=== PATIENT | female | born 1960 | race Two or more races ===

== ENCOUNTER 2019-08-24 19:51 | Inpatient (IN) | payer OTHER ==
[~2019-08-24] VITALS: Ht 172.7 cm; Wt 151.3 kg
[2019-08-24] MEDS ORDERED: DILTIAZEM HCL 25 MG/5 ML VIAL IV ONE ×2 (20:30→21:45)
[2019-08-24] MEDS ORDERED: DILTIAZEM HCL 60 MG TAB PO ONE (20:30)
[2019-08-24 22:29] LABS: Basophils # (auto) 0.1 uL; Basophils % (auto) 0.6 % (0.0-2.0); Eosinophils # (auto) 0 uL; Eosinophils % (auto) 0.2 % (0.0-7.0); Hematocrit 36.6 % (36.0-46.0); Hemoglobin 12.2 g/dL (12.2-16.2); Lymphocytes % (auto) 8.7 % (10.0-50.0); Mean Corpuscular Hemoglobin 30.3 pg (28.0-32.0); Mean Corpuscular Hgb Conc. 33.3 g/dL (32.0-36.0); Mean Corpuscular Volume 91.2 fL (80.0-100.0); Monocytes # (auto) 0.7 uL; Neutrophils # (auto) 9.6 uL; Neutrophils % (auto) 84.5 % (37.0-80.0); Platelet Count (auto) 236 10^3/uL (140-450); Red Blood Cells 4.01 10^6/uL (4.0-5.20); Red Cell Distribution Width 15.7 % (11.8-14.3); White Blood Cell 11.4 10^3/uL (4.4-10.8)
[2019-08-24 22:42] LABS: INR 1.03 (0.9-1.15); Partial Thromboplastin Time 27.3 sec (23.64-32.05)
[2019-08-24 23:10] LABS: Alanine Aminotransferase 21 U/L (13-56); Albumin 3.4 g/dL (3.4-5.0); Anion Gap 15 (5-15); Aspartate Aminotransferase 70 U/L (15-37); BUN/Creatinine Ratio 11.7; Blood Alcohol < 3.0 mg/dL (0-5); Blood Urea Nitrogen 53 mg/dL (7-18); Calcium 8.2 mg/dL (8.5-10.1); Carbon Dioxide 30 mmol/L (21-32); Chloride 86 mmol/L (98-107); GFR African American 13 mL/min; GFR Non-African American 11 mL/min; Glucose 275 mg/dL (74-106); Potassium 3.8 mmol/L (3.5-5.1); Sodium 131 mmol/L (136-145)
[2019-08-24 23:13] LABS: Alkaline Phosphatase 114 U/L (45-117); Bilirubin, Total 0.8 mg/dL (0.2-1.0); Total Protein 7.5 g/dL (6.4-8.2)
[2019-08-24] MEDS ORDERED: ACETAMINOPHEN 325 MG TAB PO ONE (23:30)
[2019-08-24] MEDS ORDERED: SODIUM CHLORIDE 0.9% 1,000 ML IV ONE (23:30)
[2019-08-24] MEDS ORDERED: METOPROLOL TARTRATE 1MG/1ML-5ML VIAL IV SCH (23:45)
[2019-08-25] VITALS (7 sets, daily range): BP systolic 98–112; BP diastolic 47–70
[2019-08-25 00:52] LABS: Urine Bacteria MANY /hpf (None Seen); Urine Blood TRACE /uL (Negative); Urine Hyaline Cast MOD /lpf (0 - 2); Urine Mucus FEW (None Seen); Urine Specific Gravity 1.016 (1.001-1.035); Urine WBC 304 /hpf (0 - 5)
[2019-08-25 00:59] LABS: Barbiturate Scree,Urine NEGATIVE (NEGATIVE); Benzodiazephine Screen, Urine NEGATIVE (NEGATIVE); Cannabinoid Screen, Urine NEGATIVE (NEGATIVE)
[2019-08-25 01:07] LABS: Alcohol, Urine < 3.0 mg/dL (0-5); Amphetamine Screen, Urine NEGATIVE (NEGATIVE); Cocaine Screen, Urine NEGATIVE (NEGATIVE); Opiate Scree,Urine POSITIVE (NEGATIVE); Phencyclidine Screen, Urine NEGATIVE (NEGATIVE)
[2019-08-25] MEDS ORDERED: cefTRIAXone 1GM/50ML D5W 50 ML IV ONE (01:45)
[2019-08-25] MEDS ORDERED: TEMAZEPAM 15 MG CAP PO PRN (03:15)
[2019-08-25] MEDS ORDERED: LORazepam 0.5 MG TAB PO PRN (03:15)
[2019-08-25] MEDS ORDERED: ALBUTEROL SULF 2.5 MG/0.5ML(0.5%) NEB SOLN NEB PRN (03:15)
[2019-08-25] MEDS ORDERED: DOCUSATE SOD 100 MG CAP PO PRN (03:15)
[2019-08-25] MEDS ORDERED: IPRATROPIUM BROM 0.5 MG/2.5ML INH SOL NEB PRN (03:15)
[2019-08-25] MEDS ORDERED: HYDROcodone-ACET 5/325MG TAB PO PRN (03:15)
[2019-08-25] MEDS ORDERED: ACETAMINOPHEN 500 MG TAB PO PRN (03:15)
[2019-08-25] MEDS ORDERED: ONDANSETRON HCL 4 MG/2 ML VIAL IV PRN (03:15)
[2019-08-25] MEDS ORDERED: HEPARIN SODIUM (PORCINE) 5000 UNITS/ML 1ML VIAL IV ONE ×3 (03:30→14:45)
[2019-08-25] MEDS ORDERED: DEXTROSE (50%) 50ML SYRG IV PRN (04:00)
[2019-08-25 04:36] LABS: Basophils # (auto) 0 uL; Basophils % (auto) 0.5 % (0.0-2.0); Eosinophils # (auto) 0.1 uL; Eosinophils % (auto) 0.6 % (0.0-7.0); Hematocrit 33.3 % (36.0-46.0); Hemoglobin 10.8 g/dL (12.2-16.2); Lymphocytes # (auto) 0.8 uL; Lymphocytes % (auto) 8.6 % (10.0-50.0); Mean Corpuscular Hgb Conc. 32.5 g/dL (32.0-36.0); Mean Corpuscular Volume 92.2 fL (80.0-100.0); Monocytes # (auto) 0.5 uL; Monocytes % (auto) 5.6 % (0.0-12.0); Neutrophils # (auto) 7.7 uL; Neutrophils % (auto) 84.7 % (37.0-80.0); Platelet Count (auto) 214 10^3/uL (140-450); Red Blood Cells 3.61 10^6/uL (4.0-5.20); Red Cell Distribution Width 15.7 % (11.8-14.3); White Blood Cell 9.1 10^3/uL (4.4-10.8)
--- NOTE | 2019-08-25 04:41 | NUR ---
Telemetry admit from ER ANA BUCK admitted to Telemetry unit after SBAR received. Patient oriented to Katja moya RN, unit, room, bed, and unit policies regarding patient care and visiting hours. Patient now on continuous telemetry monitoring, tele box # 4 and telemetry reading on arrival to unit is a fib 95. Patient placed on bedside oxygen 3L, weighed by bedscale and encouraged to call if they need something. All questions and concerns addressed, patient verbalized understanding. Note: daughter at bedside at this time
[2019-08-25 04:43] LABS: INR 1.03 (0.9-1.15); Partial Thromboplastin Time 27.4 sec (23.64-32.05)
[2019-08-25 05:15] LABS: BUN/Creatinine Ratio 12.2; Calcium 7.9 mg/dL (8.5-10.1); Potassium 3.4 mmol/L (3.5-5.1)
--- NOTE | 2019-08-25 05:15 | NUR ---
called and talked to hospitalist, juve. she told me to go ahead with the bolus of heparin and the heparin drip.
--- NOTE | 2019-08-25 05:24 | NUR ---
wound pictures taken.
--- NOTE | 2019-08-25 05:50 | NUR ---
pt blood sugar was 446 and 421. gave 10 units insulin and talked to hospitalist. new orders for accu q6 moderate scale.
[2019-08-25] MEDS: GABAPENTIN 300 MG CAP PO SCH ×3 (05:53→21:38)
[2019-08-25] MEDS: PANTOPRAZOLE 40 MG TAB PO SCH (05:53)
[2019-08-25] MEDS ORDERED: ACCU-CHEK COMFORT CURVE STRIP VI SCH (06:00)
[2019-08-25] MEDS ORDERED: InsuLIN REG 1unit/0.01ml Soln (100units/ml) SC SCH (06:00)
[2019-08-25] MEDS: ALBUTEROL SULF 2.5 MG/0.5ML(0.5%) NEB SOLN NEB SCH ×3 (06:09→18:13)
[2019-08-25] MEDS: IPRATROPIUM BROM 0.5 MG/2.5ML INH SOL NEB SCH ×3 (06:09→18:13)
[2019-08-25] MEDS ORDERED: BUSP5TAB51 PO (06:27)
[2019-08-25] MEDS ORDERED: PERCOT PO (06:27)
[2019-08-25] MEDS ORDERED: ATOR40TA52 PO (06:27)
[2019-08-25] MEDS ORDERED: APIX5TAB PO (06:27)
[2019-08-25] MEDS ORDERED: CLOP75TA41 PO (06:27)
[2019-08-25] MEDS ORDERED: LORA-655 PO (06:27)
[2019-08-25] MEDS ORDERED: GABA300C10 PO (06:27)
[2019-08-25] MEDS ORDERED: MECL-87 PO (06:27)
[2019-08-25] MEDS ORDERED: RANO500T2 PO (06:27)
[2019-08-25] MEDS ORDERED: METO-169 PO (06:27)
[2019-08-25] MEDS ORDERED: BECL40AE11 IN (06:27)
[2019-08-25] MEDS ORDERED: PRIM50TA5 PO (06:27)
[2019-08-25] MEDS ORDERED: METO2.5T11 PO (06:27)
[2019-08-25] MEDS ORDERED: PANT40TA2 PO (06:27)
[2019-08-25] MEDS ORDERED: BUME2TAB5 PO (06:27)
[2019-08-25] MEDS ORDERED: ONDA-155 PO (06:27)
[2019-08-25] MEDS ORDERED: AMIO200T33 PO (06:27)
[2019-08-25] MEDS ORDERED: ALBUAER3 IN (06:27)
[2019-08-25] MEDS ORDERED: SERT-274 PO (06:27)
[2019-08-25] MEDS ORDERED: NITR0.4S29 SL (06:27)
[2019-08-25] MEDS ORDERED: NORT25CA PO (06:27)
--- NOTE | 2019-08-25 06:50 | NUR ---
IV insertion IV access obtained, via clean sterile technique by inserting 22 gauge catheter at right wrist after 1 attempt(s). IV secured properly. No trauma to site. Patient tolerated well. NOTE: old iv not patent IV removal IV DC'd with clean sterile technique, catheter fully intact. Pressure dressing applied to site. Patient tolerated well. NOTE: OLD IV NOT PATENT
[2019-08-25] MEDS: HEPARIN DRIP/D5W 100UNITS/ML 250 ML IV SCH (06:56)
[2019-08-25 07:47] LABS: Basophils # (auto) 0 uL; Basophils % (auto) 0.3 % (0.0-2.0); Eosinophils # (auto) 0.1 uL; Eosinophils % (auto) 0.6 % (0.0-7.0); Hematocrit 31.9 % (36.0-46.0); Hemoglobin 10.5 g/dL (12.2-16.2); Lymphocytes # (auto) 0.7 uL; Lymphocytes % (auto) 7.8 % (10.0-50.0); Mean Corpuscular Hemoglobin 29.9 pg (28.0-32.0); Mean Corpuscular Hgb Conc. 32.9 g/dL (32.0-36.0); Monocytes # (auto) 0.7 uL; Monocytes % (auto) 7.4 % (0.0-12.0); Neutrophils # (auto) 7.8 uL; Neutrophils % (auto) 83.9 % (37.0-80.0); Nucleated Red Blood Cells % 0.1 %; Platelet Count (auto) 212 10^3/uL (140-450); Red Cell Distribution Width 15.5 % (11.8-14.3); White Blood Cell 9.3 10^3/uL (4.4-10.8)
--- NOTE | 2019-08-25 08:20 | NUR ---
OPENING SHIFT NOTE ASSUMED CARE OF PATIENT. PATIENT IS AWAKE AND ALERT. NO SOB OR SIGNS OF DISTRESS NOTED. INSTRUCTED ON POC AND TO CALL FOR ASSISTANCE PRN. BED IN LOWEST POSITION WITH SIDE RAILS UP X2. WILL CONTINUE TO MONITOR.
--- NOTE | 2019-08-25 09:50 | NUR ---
Complaint Received a complain from pt's daughter stating that the pt was shaking and with out oxygen on, spoke to the ALODIZE MACHINE HELPER and informed me that pt needed to go to the [facility] and the O2 tubing was not long enough, pt informed ALODIZE MACHINE HELPER that she will be ok with out oxygen for a little bit for the ALODIZE MACHINE HELPER to go an get the long O2 tubing, and that pt has been shaking since before, pt's family informed of the situation, pt's daughter requesting for a transfer to [facility], Dr. Rogers informed that the pt's daughter wants to talk to him regarding the transfer, house worker informed that pt's daughter wants to talk to house worker, bed side nurse informed.
[2019-08-25] MEDS ORDERED: POTASSIUM CHL 10 Meq TABLET PO ONE (10:00)
[2019-08-25] MEDS: ACCU-CHEK COMFORT CURVE STRIP VI SCH ×3 (12:00→23:47)
[2019-08-25] MEDS: InsuLIN REG 1unit/0.01ml Soln (100units/ml) SC SCH ×3 (12:00→23:44)
[2019-08-25] MEDS: AMIODARONE HCL 200 MG TAB PO SCH ×2 (12:03→21:38)
[2019-08-25] MEDS: SERTRALINE HCL 50 MG TAB PO SCH (12:04)
[2019-08-25] MEDS: CLOPIDOGREL BISULFATE 75 MG TAB PO SCH (12:04)
--- NOTE | 2019-08-25 12:30 | NUR ---
PATIENT REFUSED REGULAR INSULIN. HAS HOME INSULIN AND REFUSED TO SURRENDER IT AT THIS TIME. CHARGE NURSE IS AWARE.
[2019-08-25 13:51] LABS: INR 1.03 (0.9-1.15); Partial Thromboplastin Time 35.3 sec (23.64-32.05)
[2019-08-25] MEDS ORDERED: DIPHENOXYLATE W/ATROPINE 2.5 MG TAB PO PRN (17:15)
--- NOTE | 2019-08-25 20:00 | NUR ---
PATIENT HAS INSULIN HUMULIN R U-500 AT BEDSIDE WITH HER OWN SLIDING SCALE. PER RECEIVED REPORT MD IS AWARE THAT PATIENT HAS BEEN INJECTING HER OWN INSULIN AND REFUSES THE HOSPITAL INSULIN BECAUSE IT DOES NOT WORK FOR HER. WILL CONTINUE TO MONITOR
--- NOTE | 2019-08-25 21:05 | NUR ---
HEPARIN DRIP STILL AT 13 ML/HR. WAITING FOR PT/PTT RESULT
[2019-08-25] MEDS: ATORVASTATIN 20 MG TAB PO SCH (21:38)
--- NOTE | 2019-08-25 21:50 | NUR ---
CALLED LAB TO FOLLOW UP PT/PTT RESULT; STAFF SAID IT'S STILL BEING PROCESSED, INSTRUCTED TO TIME NEXT PT/PTT AT 3:15 AM
[2019-08-25 22:35] LABS: INR 0.99 (0.9-1.15); Partial Thromboplastin Time 46.5 sec (23.64-32.05)
--- NOTE | 2019-08-25 22:38 | NUR ---
HEPARIN DRIP LATEST APTT RESULT 46.5, PER HEPARIN DRIP PROTOCOL; NO BOLUS, INCREASE RATE BY 200 UNITS/HR=2ML/HR
--- NOTE | 2019-08-25 23:48 | NUR ---
HYPOGLYCEMIA PATIENT'S BLOOD SUGAR DROPPED TO 37 MG/DL, REPEATED 34 MG/DL. PATIENT IS AWAKE, ALERT, ORIENTED X4, ABLE TO SWALLOW AND DENIES ANY SYMPTOMS OF HYPOGLYCEMIA. 8 OZ OF ORANGE JUICE GIVEN. WILL CONTINUE TO MONITOR
--- NOTE | 2019-08-25 23:50 | NUR ---
PATIENT STILL REFUSES TO SURRENDER HER OWN INSULIN BUT AGREED BRING IT HOME AND NOT TO INJECT ANOTHER DOSE AND LET THE NURSES GIVE HOSPITAL INSULIN.
[2019-08-26] MEDS: IPRATROPIUM BROM 0.5 MG/2.5ML INH SOL NEB SCH ×4 (00:28→19:40)
[2019-08-26] MEDS: ALBUTEROL SULF 2.5 MG/0.5ML(0.5%) NEB SOLN NEB SCH ×4 (00:28→19:40)
[2019-08-26] MEDS: cefTRIAXone 1GM/50ML D5W 50 ML IV SCH (01:58)
[2019-08-26] MEDS: HEPARIN DRIP/D5W 100UNITS/ML 250 ML IV SCH ×2 (02:17→19:20)
[2019-08-26] MEDS: DEXTROSE (50%) 50ML SYRG IV PRN ×2 (02:24→04:38)
[2019-08-26 03:00] LABS: Basophils # (auto) 0.1 uL; Basophils % (auto) 0.8 % (0.0-2.0); Eosinophils # (auto) 0.1 uL; Eosinophils % (auto) 1.6 % (0.0-7.0); Hemoglobin 10.8 g/dL (12.2-16.2); Lymphocytes # (auto) 1.2 uL; Lymphocytes % (auto) 12.7 % (10.0-50.0); Mean Corpuscular Hemoglobin 30.3 pg (28.0-32.0); Mean Corpuscular Hgb Conc. 33.7 g/dL (32.0-36.0); Mean Corpuscular Volume 90.1 fL (80.0-100.0); Monocytes # (auto) 0.8 uL; Neutrophils % (auto) 75.9 % (37.0-80.0); Platelet Count (auto) 223 10^3/uL (140-450); Red Blood Cells 3.55 10^6/uL (4.0-5.20); Red Cell Distribution Width 15.4 % (11.8-14.3); White Blood Cell 9.2 10^3/uL (4.4-10.8)
--- NOTE | 2019-08-26 03:02 | NUR ---
PAGED HOSPITALIST FOR EPISODES OF HYPOGLYCEMIA, WAITING FOR CALL BACK
[2019-08-26 03:15] LABS: INR 0.99 (0.9-1.15); Partial Thromboplastin Time 51.5 sec (23.64-32.05)
[2019-08-26 03:16] LABS: Albumin 3.2 g/dL (3.4-5.0); Calcium 8.4 mg/dL (8.5-10.1)
[2019-08-26 03:19] LABS: BUN/Creatinine Ratio 16.8
[2019-08-26] MEDS ORDERED: INSU1INJ15 SC (03:19)
[2019-08-26 03:23] LABS: Bilirubin, Total 0.5 mg/dL (0.2-1.0); Total Protein 7.7 g/dL (6.4-8.2)
[2019-08-26 03:24] LABS: Potassium 2.8 mmol/L (3.5-5.1)
--- NOTE | 2019-08-26 03:25 | NUR ---
HEPARIN DRIP LATEST APTT RESULT 51.5, PER HEPARIN DRIP PROTOCOL; NO BOLUS, NO CHANGE IN RATE
--- NOTE | 2019-08-26 03:30 | NUR ---
PAGED HOSPITALIST FOR CRITICAL RESULT; POTASSIUM 2.8. WAITING FOR CALL BACK
--- NOTE | 2019-08-26 04:09 | NUR ---
PAGED HOSPITALIST FOR CRITICAL RESULT POTASSIUM 2.8 AND EPISODES OF HYPOGLYCEMIA. WAITING FOR CALL BACK
[2019-08-26] MEDS ORDERED: POTASSIUM CHL 20MEQ/100ML 100 ML IV STA (04:22)
[2019-08-26] MEDS ORDERED: POTASSIUM CHL 20 Meq TABLET PO ONE (04:30)
--- NOTE | 2019-08-26 04:30 | NUR ---
RECEIVED ORDER FROM ARTIS BLACKMON; POTASSIUM CHLORIDE 40 MEQ TAB ONCE, POTASSIUM CHLORIDE IV 40 MEQ ONCE, GIVE ANOTHER DOSE OF D50% IN 50 ML MADE AWARE PATIENT INJECTING HER OWN INSULIN
[2019-08-26] MEDS ORDERED: POTASSIUM CHL 20MEQ/100ML 100 ML IV ONE (04:45)
[2019-08-26 05:00] VITALS: BP 146/87
[2019-08-26] MEDS: ACCU-CHEK COMFORT CURVE STRIP VI SCH ×4 (06:00→23:52)
[2019-08-26] MEDS: InsuLIN REG 1unit/0.01ml Soln (100units/ml) SC SCH ×4 (06:00→23:52)
--- NOTE | 2019-08-26 06:40 | NUR ---
[facility] HOSPITALIST; PATIENT'S LATEST BLOOD SUGAR IS 53 MG/DL. PATIENT DENIES S/S OF HYPOGLYCEMIA RECEIVED ORDER FROM ARTIS BLACKMON TO START D10% AT 30 ML/HR AND STOP ONCE BLOOD SUGAR IS NORMAL
[2019-08-26] MEDS ORDERED: DEXTROSE 10% 1,000 ML IV ONE (06:45)
[2019-08-26] MEDS ORDERED: POTASSIUM CHL 20MEQ/100ML 100 ML IV SCH (06:50)
[2019-08-26] MEDS: PANTOPRAZOLE 40 MG TAB PO SCH (06:53)
[2019-08-26] MEDS: GABAPENTIN 300 MG CAP PO SCH ×3 (06:53→21:29)
--- NOTE | 2019-08-26 07:30 | NUR ---
Opening Shift Note RECEIVED REPORT FROM NOC RN. Assumed care of patient, awake and alert. PATIENT ON OXYGEN AT 4 LPM VIA NASAL CANNULA WITH no S/S of distress/SOB or pain. BED IN LOWEST, LOCKED POSITION WITH SIDERAILS UP x2 AND CALL LIGHT WITHIN REACH AND DAUGHTER AT BEDSIDE. Instructed on POC and to call for assist PRN, will continue to monitor for changes Q1hr and PRN.
--- NOTE | 2019-08-26 07:38 | NUR ---
CARE ENDORSED TO AM SHIFT RN
--- NOTE | 2019-08-26 08:00 | NUR ---
RYAN FROM LAB CALLED A CRITICAL TROPONIN VALUE 0.501 FROM MONDAY AT 0030 HOURS.
[2019-08-26 09:00] VITALS: BP 117/79
--- NOTE | 2019-08-26 09:38 | NUR ---
DR. ALEX AT BEDSIDE.
[2019-08-26 09:42] LABS: Partial Thromboplastin Time 55.4 sec (23.64-32.05)
[2019-08-26] MEDS: AMIODARONE HCL 200 MG TAB PO SCH ×2 (10:20→21:29)
[2019-08-26] MEDS: SERTRALINE HCL 50 MG TAB PO SCH (10:20)
[2019-08-26] MEDS: CLOPIDOGREL BISULFATE 75 MG TAB PO SCH (10:20)
--- NOTE | 2019-08-26 10:22 | NUR ---
Transfer: faxed transfer packet to [facility]
--- NOTE | 2019-08-26 11:04 | NUR ---
[facility] denied transfer.
--- NOTE | 2019-08-26 11:31 | NUR ---
DR. YAN AT BEDSIDE.
[2019-08-26 11:37] LABS: Phosphorus 2.6 mg/dL (2.5-4.90); Uric Acid 13.8 mg/dL (2.6-6.0)
[2019-08-26 13:00] VITALS: BP 108/57
[2019-08-26 14:30] LABS: Calcium 8.8 mg/dL (8.5-10.1); Potassium 3.8 mmol/L (3.5-5.1)
[2019-08-26 14:34] LABS: BUN/Creatinine Ratio 19.4
[2019-08-26 15:37] LABS: INR 0.98 (0.9-1.15); Partial Thromboplastin Time 48.9 sec (23.64-32.05)
[2019-08-26 16:35] VITALS: BP 116/83
[2019-08-26 18:34] LABS: Protein, Urine 35.7 mg/dL (0.0-11.9)
[2019-08-26] MEDS: ATORVASTATIN 20 MG TAB PO SCH (21:29)
[2019-08-26 22:00] VITALS: BP 136/63
--- NOTE | 2019-08-26 23:00 | NUR ---
PATIENT REFUSED TO BE NPO AFTER MIDNIGHT, SHE DOES NOT WANT TO DO THE CARDIOLITE STRESS TEST SCHEDULED IN AM SHE SAID SHE WILL WAIT FOR THE ADVICE FROM HER OFFICE SUPPORT CLERK IN [place]
[2019-08-26 23:40] LABS: Partial Thromboplastin Time 57.9 sec (23.64-32.05)
--- NOTE | 2019-08-26 23:42 | NUR ---
HEPARIN DRIP LATEST APTT RESULT 57.9, PER HEPARIN DRIP PROTOCOL; NO BOLUS, NO CHANGE IN RATE CURRENT RATE 1700 UNITS/HR=17 ML/HR
[2019-08-27] VITALS (7 sets, daily range): BP systolic 113–132; BP diastolic 54–98
[2019-08-27] MEDS: ALBUTEROL SULF 2.5 MG/0.5ML(0.5%) NEB SOLN NEB SCH ×4 (00:59→19:02)
[2019-08-27] MEDS: IPRATROPIUM BROM 0.5 MG/2.5ML INH SOL NEB SCH ×4 (00:59→19:02)
[2019-08-27] MEDS: cefTRIAXone 1GM/50ML D5W 50 ML IV SCH (02:04)
[2019-08-27] MEDS: InsuLIN REG 1unit/0.01ml Soln (100units/ml) SC SCH ×3 (06:07→17:41)
[2019-08-27] MEDS: ACCU-CHEK COMFORT CURVE STRIP VI SCH ×3 (06:07→17:41)
[2019-08-27] MEDS: GABAPENTIN 300 MG CAP PO SCH ×3 (06:07→22:14)
[2019-08-27] MEDS: PANTOPRAZOLE 40 MG TAB PO SCH (06:12)
[2019-08-27 07:03] LABS: Chloride 95 mmol/L (98-107); Potassium 4.2 mmol/L (3.5-5.1); Sodium 133 mmol/L (136-145)
[2019-08-27 07:05] LABS: % Iron Saturation 23.6 % (15-50)
[2019-08-27 07:12] LABS: Alanine Aminotransferase 21 U/L (13-56); Albumin 2.9 g/dL (3.4-5.0); Anion Gap 9 (5-15); Aspartate Aminotransferase 65 U/L (15-37); BUN/Creatinine Ratio 19.7; Blood Urea Nitrogen 43 mg/dL (7-18); Calcium 8.9 mg/dL (8.5-10.1); Carbon Dioxide 29 mmol/L (21-32); GFR African American 30 mL/min; GFR Non-African American 25 mL/min; Glucose 325 mg/dL (74-106)
[2019-08-27 07:13] LABS: Hematocrit 34.1 % (36.0-46.0); Hemoglobin 11.1 g/dL (12.2-16.2); Mean Corpuscular Hemoglobin 30.4 pg (28.0-32.0); Mean Corpuscular Hgb Conc. 32.5 g/dL (32.0-36.0); Mean Corpuscular Volume 93.3 fL (80.0-100.0); Platelet Count (auto) 197 10^3/uL (140-450); Red Blood Cells 3.65 10^6/uL (4.0-5.20); Red Cell Distribution Width 15.6 % (11.8-14.3); White Blood Cell 7.5 10^3/uL (4.4-10.8)
[2019-08-27 07:15] LABS: Alkaline Phosphatase 109 U/L (45-117); Band Neutrophils % (manual) 0; Basophils % (manual) 0 (0.0-2.0); Bilirubin, Total 0.4 mg/dL (0.2-1.0); Blast Cells 0; Eosinophils % (manual) 0 (0-7); Metamyelocytes % 0; Myelocytes % 0; Promyelocytes % 0; Reactive Lymphocytes 0; Total Protein 7.7 g/dL (6.4-8.2)
[2019-08-27 07:18] LABS: Ferritin 269.4 ng/mL (10-322); Folate (Folic Acid) 21.33 ng/mL (5.38-24)
--- NOTE | 2019-08-27 07:33 | NUR ---
STILL WAITING FOR LATEST PT/PTT RESULTS ENDORSED TO AM SHIFT RN
[2019-08-27 07:38] LABS: INR 1.03 (0.9-1.15); Partial Thromboplastin Time 50.9 sec (23.64-32.05)
[2019-08-27 07:47] LABS: Lymphocytes % (manual) 19 (10.0-50.0); Monocytes % (manual) 6 (0-12)
--- NOTE | 2019-08-27 08:15 | NUR ---
Opening Shift Note Assumed care of patient, awake and alert. No S/S of distress/SOB or pain. Bed is in lowest position with 2x side rails up for safety. Call light is within reach. Instructed on POC and to call for assist PRN, will continue to monitor for changes Q1hr and PRN.
--- NOTE | 2019-08-27 09:32 | NUR ---
Transfer: Spoke to Gino at [facility] and they have a 2 page lists of pt being transferred into [facility]. Family request is low priority to transfer especially since it is not for HLOC. Gino stated once echo and stress test completed on this pt and if pt has heart cath, then they will evaluate accepting of this pt. I did get a call from pbx to state daughter of pt was in lobby and wanted to speak to me, I went down to lobby and no one was in lobby.
[2019-08-27] MEDS: CLOPIDOGREL BISULFATE 75 MG TAB PO SCH (10:17)
[2019-08-27] MEDS: AMIODARONE HCL 200 MG TAB PO SCH ×2 (10:17→22:16)
[2019-08-27] MEDS: SERTRALINE HCL 50 MG TAB PO SCH (10:18)
--- NOTE | 2019-08-27 10:20 | NUR ---
DR. ISAI ALEX AT BEDSIDE WITH PATIENT AND FAMILY.
[2019-08-27] MEDS: HEPARIN DRIP/D5W 100UNITS/ML 250 ML IV SCH (10:23)
[2019-08-27] MEDS ORDERED: ERGOCALCIFEROL 50,000 UNIT(1.25MG) CAP PO SCH (10:30)
[2019-08-27] MEDS: ALLOPURINOL 300 MG TAB PO SCH (11:16)
--- NOTE | 2019-08-27 11:30 | NUR ---
Hua catheter dc'd Order to discontinue hua catheter. Hua dc'd with clean technique following deflation of balloon. Patient tolerated well with no complaints of pain. Will continue care.
[2019-08-27] MEDS ORDERED: DEXTROSE (50%) 50ML SYRG IV PRN (12:00)
[2019-08-27] MEDS ORDERED: HEPARIN DRIP/D5W 100UNITS/ML 250 ML IV SCH (12:00)
[2019-08-27] MEDS ORDERED: METOPROLOL TARTRATE 50 MG TAB PO ONE (12:00)
[2019-08-27] MEDS ORDERED: LORazepam 0.5 MG TAB PO PRN (12:00)
--- NOTE | 2019-08-27 12:45 | NUR ---
IV removal IV DC'd to left wrist, per patient request, with clean technique, catheter fully intact. Pressure dressing applied to site. Patient tolerated procedure well.
[2019-08-27 13:06] LABS: INR 1.01 (0.9-1.15); Partial Thromboplastin Time 54.5 sec (23.64-32.05)
--- NOTE | 2019-08-27 13:08 | NUR ---
Transfer: spoke to pt and pt's daughter at bedside. Informed them on how transfer process works. Dr Barksdale was also in before me and spoke to pt and pt's family and they seem content now. I asked if pt or daughter had any more questions for me and the stated no
[2019-08-27] MEDS ORDERED: HUMULIN R U-500 SC SCH (14:00)
--- NOTE | 2019-08-27 14:48 | NUR ---
IV removal IV DC'd to right wrist due to patient accidently pulling it partially out, with clean clean technique, catheter fully intact. Pressure dressing applied to site. Patient tolerated well.
--- NOTE | 2019-08-27 16:21 | NUR ---
assessment Patient is a 59 year old female who is alert and oriented. Patients cognitive abilities are intact. Prior to admission patient lived home with family and functioned with assistance. Per patient she will return home to her prior living arrangements post discharge and family will transport her home. Patient informed me she has 02, fww, and a wheelchair for home use. Patient informed me her PCP is Dr Jansen at [place]. Patient informed me her daughter Sofia is her [facility] caregiver. Patient informed me she feels safe returning home on discharge and she does not need anything. I informed patient she has a right to speak to a social media marketing analyst regarding all care. I informed patient she has a right to participate in any and all discharge planning. Patient has a POA and advanced directive. Patient verbalized understanding and agreed to discharge plan. Addendum: 08/28/19 at 1625 by Lore BRADSHAW Amended: Links added.
--- NOTE | 2019-08-27 17:42 | NUR ---
POC 468, patient to administer home Humulin R Kwikpin at bedside. Humulin sliding scale held due to too much insulin and possibly causing hypoglycemia.
[2019-08-27 18:40] LABS: INR 0.99 (0.9-1.15); Partial Thromboplastin Time 50.5 sec (23.64-32.05)
--- NOTE | 2019-08-27 19:09 | NUR ---
Care endorsed to ANTONY Vidal, night nurse.
--- NOTE | 2019-08-27 20:00 | NUR ---
DAUGHTER AT BEDSIDE;PT CALM;DENIES PAIN.
[2019-08-27] MEDS: HUMULIN R U-500 SC SCH (22:00)
[2019-08-27] MEDS: APIXABAN 2.5 MG TAB PO SCH (22:12)
[2019-08-27] MEDS: METOPROLOL TARTRATE 50 MG TAB PO SCH (22:14)
[2019-08-27] MEDS: ATORVASTATIN 20 MG TAB PO SCH (22:16)
[2019-08-28] MEDS: ACCU-CHEK COMFORT CURVE STRIP VI SCH ×3 (00:23→12:00)
[2019-08-28] MEDS: cefTRIAXone 1GM/50ML D5W 50 ML IV SCH (02:10)
[2019-08-28 05:00] VITALS: BP 112/67
[2019-08-28] MEDS: IPRATROPIUM BROM 0.5 MG/2.5ML INH SOL NEB SCH ×2 (05:39)
[2019-08-28] MEDS: ALBUTEROL SULF 2.5 MG/0.5ML(0.5%) NEB SOLN NEB SCH ×2 (05:39)
[2019-08-28] MEDS: InsuLIN REG 1unit/0.01ml Soln (100units/ml) SC SCH ×3 (05:54→12:00)
[2019-08-28] MEDS: HUMULIN R U-500 SC SCH (06:00)
[2019-08-28] MEDS: GABAPENTIN 300 MG CAP PO SCH (06:26)
[2019-08-28] MEDS: PANTOPRAZOLE 40 MG TAB PO SCH (06:26)
[2019-08-28 07:07] VITALS: BP 112/67
--- NOTE | 2019-08-28 07:20 | NUR ---
Opening note Resumed care of patient from shift supervisor rn nurse. Patient alert and oriented x4. No signs of distress noted. Daughter at bedside. Plan of care discussed with patient and she verbalized understanding. Bed in lowest position with side rails up x2. IV flushed, patient, no pain, redness or erythema noted. call light in reach. Will continue to monitor.
--- NOTE | 2019-08-28 08:45 | NUR ---
Transfer: I called [facility] and [facility] has denied transfer for a second time
[2019-08-28 09:00] VITALS: BP 108/58
[2019-08-28] MEDS: METOPROLOL TARTRATE 50 MG TAB PO SCH (10:00)
[2019-08-28 10:44] LABS: BUN/Creatinine Ratio 22.1; Calcium 9.6 mg/dL (8.5-10.1); Potassium 4.5 mmol/L (3.5-5.1)
[2019-08-28] MEDS: APIXABAN 2.5 MG TAB PO SCH (11:13)
[2019-08-28] MEDS: AMIODARONE HCL 200 MG TAB PO SCH (11:13)
[2019-08-28] MEDS: SERTRALINE HCL 50 MG TAB PO SCH (11:13)
[2019-08-28] MEDS: ALLOPURINOL 300 MG TAB PO SCH (11:13)
[2019-08-28] MEDS: CLOPIDOGREL BISULFATE 75 MG TAB PO SCH (11:13)
[2019-08-28] MEDS ORDERED: APIX2.5T PO (11:15)
[2019-08-28] MEDS ORDERED: ERGO1CAP23 PO (11:15)
[2019-08-28 13:00] VITALS: BP 113/69
[2019-08-28 13:32] VITALS: BP 108/53
== END 2019-08-28 14:40 | disposition home or self-care (01) | DRG 280 ==
LOC: EDBD 19:51 → ER 19:56 → TELE 19:57 → TELE-EAST 08-25 04:33
PROVIDERS: ADMIT Nurse Practitioner Family; ATTEND Internal Medicine
DX: I21.4 Non-ST elevation (NSTEMI) myocardial infarction (principal); N17.0 Acute kidney failure with tubular necrosis; G93.41 Metabolic encephalopathy; N39.0 Urinary tract infection, site not specified; E87.1 Hypo-osmolality and hyponatremia; E87.3 Alkalosis; I50.22 Chronic systolic (congestive) heart failure; I13.0 Hypertensive heart and chronic kidney disease with heart failure and stage 1 through stage 4 chronic kidney disease, or unspecified chronic kidney disease; I69.351 Hemiplegia and hemiparesis following cerebral infarction affecting right dominant side; Z68.43 Body mass index [BMI] 50.0-59.9, adult; N18.4 Chronic kidney disease, stage 4 (severe); I48.92 Unspecified atrial flutter; D68.69 Other thrombophilia; J96.10 Chronic respiratory failure, unspecified whether with hypoxia or hypercapnia; E44.0 Moderate protein-calorie malnutrition; I42.9 Cardiomyopathy, unspecified; I25.10 Atherosclerotic heart disease of native coronary artery without angina pectoris; E87.6 Hypokalemia; E66.01 Morbid (severe) obesity due to excess calories; I48.91 Unspecified atrial fibrillation; E11.22 Type 2 diabetes mellitus with diabetic chronic kidney disease; E78.5 Hyperlipidemia, unspecified; J44.9 Chronic obstructive pulmonary disease, unspecified; Z96.659 Presence of unspecified artificial knee joint; F32.9 Major depressive disorder, single episode, unspecified; F41.9 Anxiety disorder, unspecified; K76.9 Liver disease, unspecified; E11.649 Type 2 diabetes mellitus with hypoglycemia without coma; E78.00 Pure hypercholesterolemia, unspecified; E11.21 Type 2 diabetes mellitus with diabetic nephropathy; D63.8 Anemia in other chronic diseases classified elsewhere; E55.9 Vitamin D deficiency, unspecified; E79.0 Hyperuricemia without signs of inflammatory arthritis and tophaceous disease; Z79.01 Long term (current) use of anticoagulants; Z91.040 Latex allergy status; Z88.5 Allergy status to narcotic agent; Z88.8 Allergy status to other drugs, medicaments and biological substances; Z79.4 Long term (current) use of insulin; Z90.49 Acquired absence of other specified parts of digestive tract; Z95.5 Presence of coronary angioplasty implant and graft; Z80.3 Family history of malignant neoplasm of breast; Z79.899 Other long term (current) drug therapy; Z99.81 Dependence on supplemental oxygen; Z80.1 Family history of malignant neoplasm of trachea, bronchus and lung
CPT/HCPCS: 36415; 70450; 71045; 76775; 80048; 80053; 80307; 80320; 81001; 82306; 82570; 82607; 82728; 82746; 82962; 83036; 83540; 83550; 83605; 83735; 83880; 83970; 84100; 84156; 84300; 84443; 84484; 84550; 85007; 85025; 85027; 85379; 85610; 85730; 87086; 93005; 93306; 93926; 94640; G0378; J0696; J1815; J3480